=== PATIENT | female | born 1965 | race Caucasian/White ===

== ENCOUNTER → 2016-07-27 | Outpatient (CLI) | payer OTHER ==
--- NOTE | 2016-07-27 16:06 | REP ---
Focused right breast sonography: History: 6-month follow-up. Comparison sonography: 01/07/2016. Findings: The right breast was scanned from 8 o'clock to 10 o'clock. At 9 o'clock there is 1.8 x 0.7 x 1.6 cm cyst 2.5 cm from the nipple. This appears sonographically simple. At 10 o'clock there are two hypoechoic areas measuring 0.4 x 0.3 x 0.3 cm and 0.9 x 0.3 x 0.7 cm. These appear to be normal breast parenchyma within a echodense fibroglandular background of breast parenchyma. Also at 10 o'clock is a 0.4 x 0.5 x 0.3 cm hypoechoic area 2.6 cm from the nipple which is felt to be unchanged from the comparison study. Impression: Stable BIRADS category 3 probably benign right breast imaging. Bilateral mammography and repeat right breast sonography recommended in 6 months. Signed by Uli Flores MD 07/28/2016 07:29 A
== END ==
LOC: M RAD 09:41
PROVIDERS: ATTEND Surgery
DX: N64.59 Other signs and symptoms in breast (principal)

== ENCOUNTER → 2016-08-31 | Outpatient (CLI) | payer OTHER ==
[~2016-08-31] MED LIST: E-Z-GAS II EFFERVESCENT PACKET (SODIUM BICARB./CITRIC ACID/SIMETHICONE) As Ordered ONE; E-Z-HD 98% w/w 340GM SUSP BTL As Ordered ONE; E-Z-PAQUE 96% w/w SUSP 176GM BTL As Ordered ONE
--- NOTE | 2016-09-01 08:04 | REP ---
UPPER GI AIR CONTRAST: The procedure was performed under the direct supervision of Dr. Mixon. The images were reviewed with Dr. Mixon. The flower maker film shows no organomegaly or pathological masses. The intestinal gas pattern is nonspecific. Liquid barium and gas producing granules were given in the erect position as well as liquid barium in the prone oblique position in order to perform a double contrast upper GI examination. The oral and pharyngeal stages of deglutition are unremarkable. Esophageal transport is prompt and efficient and there is no esophagitis, stricture, mucosal ring, or hiatal hernia. The GE junction is patulous and there is gastroesophageal reflux demonstrated to above the level of the sanaz. The stomach avilez are normally outlined. The rugal folds are smooth and regular. There is no gastritis, neoplasm, or ulcer disease. The duodenal avilez are normally outlined. The mucosal folds are smooth and regular. There is no duodenitis, pancreatitis, peptic ulcer disease or neoplasm. The visualized portion of the proximal small bowel appears normal in course and caliber. IMPRESSION: The GE junction is patulous and there is gastroesophageal reflux demonstrated to above the level of the sanaz. Otherwise unremarkable double contrast upper GI examination. 1 minute and 51 seconds of fluoroscopic time was utilized for this procedure. Reviewed by CHIDI Augustin 09/02/2016 03:24 PEdited and Signed by Garth Mixon MD 09/02/2016 04:48 P
== END ==
LOC: M RAD 08:50
PROVIDERS: ATTEND Family Medicine
DX: K21.9 Gastro-esophageal reflux disease without esophagitis (principal)

== ENCOUNTER 2016-12-15 12:00 | Outpatient (CLI) | payer OTHER ==
[~2016-12-15] VITALS: Ht 162.6 cm; Wt 61.7 kg
[~2016-12-15 12:00] MED LIST changes: +DRIS50002 PO; -E-Z-GAS II EFFERVESCENT PACKET (SODIUM BICARB./CITRIC ACID/SIMETHICONE) As Ordered ONE; -E-Z-HD 98% w/w 340GM SUSP BTL As Ordered ONE; -E-Z-PAQUE 96% w/w SUSP 176GM BTL As Ordered ONE; +IRON65TA PO; +PANT40TA2 PO; +PROP1TAB29 PO
[2016-12-15] MEDS ORDERED: NS 1,000 ML IV ONE (13:00)
[2016-12-15] MEDS ORDERED: PROPOFOL 200 MG/20 ML VIAL As Ordered ONE ×2 (14:07→14:28)
[2016-12-15] MEDS ORDERED: LIDOCAINE 2% INJ 100 MG/5 ML SDV (FOR ANES.) As Ordered ONE (14:07)
--- NOTE | 2016-12-15 14:15 | ROOR ---
Patient Name: Kiki Larry Procedure Date: 12/15/2016 2:02 PM Date of : 1965 Age: 51 Room: [facility] Gender: Female Note Status: Finalized Procedure: Upper GI endoscopy Indications: Follow-up of Ac's esophagus Providers: Jaylon KENDRICK MD Referring MD: Brunilda Sanchez MD Requesting Provider: Medicines: Monitored Anesthesia Care Complications: No immediate complications. Procedure: Pre-Anesthesia Assessment: - The heart rate, respiratory rate, oxygen saturations, blood pressure, adequacy of pulmonary ventilation, and response to care were monitored throughout the procedure. The Endoscope was introduced through the mouth, and advanced to the second part of duodenum. The upper GI endoscopy was accomplished without difficulty. The patient tolerated the procedure well. Findings: The Z-line was irregular and was found 38 to 39 cm from the incisors. This was biopsied with a cold forceps for evaluation to rule out Ac's Esophagus. The examined esophagus was normal. The entire examined stomach was normal. The examined duodenum was normal. Impression: - Z-line irregular, 38 to 39 cm from the incisors c/w short segment barretts esophagus. Biopsied. - Normal esophagus. - Normal stomach. - Normal examined duodenum. Recommendation: - Await pathology results. - Repeat upper endoscopy in 3 years for surveillance. - Use Protonix (pantoprazole) 40 mg twice a day for Barretts esophagus Jaylon Kendrick MD Jaylon KENDRICK MD 12/15/2016 2:15:43 PM This report has been signed electronically. Number of Addenda: 0 Note Initiated On: 12/15/2016 2:02 PM Estimated Blood Loss: Estimated blood loss: none.
--- NOTE | 2016-12-15 14:38 | ROOR ---
Patient Name: Kiki Larry Procedure Date: 12/15/2016 2:04 PM Date of : 1965 Age: 51 Room: OP02 Gender: Female Note Status: Finalized Procedure: Colonoscopy Indications: Screening in patient at increased risk: Colorectal cancer in mother before age 60, Screening in patient at increased risk: Colorectal cancer in brother before age 60 Providers: Jaylon BRENNAN MD Referring MD: Brunilda Sanchez MD Requesting Provider: Medicines: Monitored Anesthesia Care Complications: No immediate complications. Procedure: Pre-Anesthesia Assessment: - The heart rate, respiratory rate, oxygen saturations, blood pressure, adequacy of pulmonary ventilation, and response to care were monitored throughout the procedure. The Colonoscope was introduced through the anus and advanced to the cecum, identified by appendiceal orifice and ileocecal valve. The colonoscopy was performed without difficulty. The patient tolerated the procedure well. The quality of the bowel preparation was good. Findings: The perianal and digital rectal examinations were normal. Two sessile polyps were found in the splenic flexure. The polyps were small in size. These polyps were removed with a cold snare. Resection and retrieval were complete. The exam was otherwise without abnormality on direct and retroflexion views. Impression: - Two small (3-4 mm) polyps at the splenic flexure, removed with a cold snare. Resected and retrieved. - The colon examination was otherwise normal on direct and retroflexion views. Recommendation: - Telephone endoscopist for pathology results in 2 weeks. - Due to strong first degree family history of colon cancer, would recommend genetic testing to determine surveillance interval/repeat colonoscopy. (OR if you do not want genetic testing, then would recommend 2 year repeat colonoscopy) Jaylon Brennan MD Jaylon BRENNAN MD 12/15/2016 2:37:54 PM This report has been signed electronically. Number of Addenda: 0 Note Initiated On: 12/15/2016 2:04 PM Estimated Blood Loss: Estimated blood loss: none.
[2016-12-15 15:00] VITALS: BP 109/68
== END 2016-12-15 15:12 | disposition home or self-care (01) ==
LOC: M OPP 12:00
PROVIDERS: ATTEND Internal Medicine Gastroenterology
DX: Z12.11 Encounter for screening for malignant neoplasm of colon (principal); D12.3 Benign neoplasm of transverse colon; Z80.0 Family history of malignant neoplasm of digestive organs; R12 Heartburn; K22.70 Barrett's esophagus without dysplasia; K22.8 Other specified diseases of esophagus; I10 Essential (primary) hypertension; R25.1 Tremor, unspecified; Z78.0 Asymptomatic menopausal state; D64.9 Anemia, unspecified

== ENCOUNTER → 2017-01-25 | Outpatient (REF) | payer OTHER ==
[2017-01-25 13:28] LABS: ANION GAP 6 MEQ/L (8-16); BLOOD UREA NITROGEN 11 MG/DL (7-18); CALCIUM LEVEL 9.3 MG/DL (8.5-10.1); CARBON DIOXIDE LEVEL 30 MEQ/L (21-32); CHLORIDE LEVEL 106 MEQ/L (98-107); GLOMERULAR FILTRATION RATE > 60.0 (>51); GLUCOSE, FASTING 94 MG/DL (70-105); MAGNESIUM LEVEL 2.1 MG/DL (1.8-2.4); POTASSIUM SERUM 4.7 MEQ/L (3.5-5.1); SODIUM LEVEL 142 MEQ/L (136-145)
== END ==
LOC: M LABDRAW1 10:23
PROVIDERS: ATTEND Internal Medicine Cardiovascular Disease
DX: I49.3 Ventricular premature depolarization (principal)

== ENCOUNTER → 2017-02-04 | Outpatient (CLI) | payer OTHER ==
--- NOTE | 2017-02-04 14:38 | REP ---
DIGITAL SCREENING BILATERAL MAMMOGRAPHY WITH CAD: HISTORY: Comparison is made with prior mammography from December 26, 2014, January 02, 2016, January 09, 2016. Prior sonography is from January 07, 2016 and July 27, 2016. On July 27, 2016 the patient was BIRADS category 3. Bilateral mammography and repeat right breast sonography were recommended. MAMMOGRAPHIC FINDINGS: The previously noted bilateral breast cysts are again seen. These sharply circumscribed lesions one in each central breast measure 2.1 cm in greatest diameter for the right breast lesion and 1.9 cm for the left. No change from most recent prior mammography. These were previously noted to be cysts. Moderate fibroglandular elements are seen throughout the upper outer quadrants. No other dominant density is seen. No microcalcification or architectural distortion is seen. IMPRESSION: BIRADS category 0 incomplete breast imaging. Stable mammographic findings. Recommend the patient return for the previously recommended 6-month follow-up right breast sonography. BI-RADS/ACR category 0 mammogram, incomplete. Additional imaging and/or prior images are needed before a final assessment can be assigned. This mammogram was interpreted with the aid of an FDA-approved computer-aided detection system. The patient states she/he had a clinical breast exam in July 2016. The patient letter being requested is M0. Signed by Uli lFores MD 02/04/2017 05:12 P
== END ==
LOC: M RAD 13:39
PROVIDERS: ATTEND Family Medicine
DX: R92.2 Inconclusive mammogram (principal); N60.01 Solitary cyst of right breast; N60.02 Solitary cyst of left breast

== ENCOUNTER → 2017-09-14 | Outpatient (CLI) | payer OTHER | LOC: M RAD 09:22 | DX: R92.2 Inconclusive mammogram (principal); Z12.31 Encounter for screening mammogram for malignant neoplasm of breast ==

== ENCOUNTER → 2017-09-23 | Outpatient (CLI) | payer OTHER | LOC: M RAD 10:08 | DX: N60.01 Solitary cyst of right breast (principal) | CPT/HCPCS: 76642 ==

== ENCOUNTER → 2017-11-04 | Outpatient (REF) | payer OTHER ==
[2017-11-12 13:33] LABS: HPV HYBRID CAPTURE II Negative (Negative)
== END ==
LOC: M LAB REF 09:49
DX: Z01.419 Encounter for gynecological examination (general) (routine) without abnormal findings (principal); Z11.51 Encounter for screening for human papillomavirus (HPV)

== ENCOUNTER → 2017-11-29 | Outpatient (REF) | payer OTHER ==
[2017-11-29 12:14] LABS: BASO % 0.1 % (0.0-1.0); EOS # 0.1 10^3/uL (0.0-0.50); EOS % 0.9 % (0.0-3.0); HEMATOCRIT 41.7 % (36.0-47.0); HEMOGLOBIN 14.7 g/dl (12.0-15.5); IMMATURE GRANULOCYTE % 0.3 % (0-3.0); LYMPH # 2.1 10^3/uL (1.5-4.5); LYMPH % 26.3 % (24.0-44.0); MEAN CORPUSCULAR HEMOGLOBIN 30.6 pg (27.0-33.0); MEAN CORPUSCULAR HGB CONC 35.3 g/dl (32.0-36.5); MEAN CORPUSCULAR VOLUME 86.7 fl (80.0-96.0); MONO # 0.5 10^3/uL (0.0-0.8); MONO % 6.3 % (0.0-5.0); NEUTROPHILS # 5.2 10^3/uL (1.8-7.7); NEUTROPHILS % 66.1 % (36.0-66.0); PLATELET COUNT, AUTOMATED 271 10^3/uL (150-450); RED BLOOD COUNT 4.81 10^6/uL (4.00-5.40); RED CELL DISTRIBUTION WIDTH 12.6 % (11.5-14.5); WHITE BLOOD COUNT 7.9 10^3/uL (4.0-10.0)
[2017-11-29 12:30] LABS: ALBUMIN 3.9 GM/DL (3.2-5.2); ALBUMIN/GLOBULIN RATIO 1.26 (1.00-1.93); ALKALINE PHOSPHATASE 87 U/L (45-117); ALT/SGPT 23 U/L (12-78); ANION GAP 7 MEQ/L (8-16); AST/SGOT 13 U/L (7-37); BILIRUBIN,TOTAL 0.4 MG/DL (0.2-1.0); BLOOD UREA NITROGEN 15 MG/DL (7-18); CALCIUM LEVEL 9.2 MG/DL (8.5-10.1); CARBON DIOXIDE LEVEL 30 MEQ/L (21-32); CHLORIDE LEVEL 107 MEQ/L (98-107); CHOLESTEROL LEVEL 182 MG/DL (<200); CREATININE FOR GFR 0.96 MG/DL (0.55-1.30); GLOMERULAR FILTRATION RATE > 60.0 (>51); GLUCOSE, FASTING 90 MG/DL (70-100); HDL CHOLESTEROL 54 MG/DL (>40); LDL CHOLESTEROL 100.4 MG/DL (<100); NON-HDL-C 128 MG/DL; POTASSIUM SERUM 4.7 MEQ/L (3.5-5.1); SODIUM LEVEL 144 MEQ/L (136-145); TRIGLYCERIDES LEVEL 138 MG/DL (<150)
== END ==
LOC: M LABDRAW1 11:39
DX: Z00.00 Encounter for general adult medical examination without abnormal findings (principal)

== ENCOUNTER → 2018-02-14 | Outpatient (CLI) | payer OTHER | LOC: M RAD 09:39 | DX: Z12.31 Encounter for screening mammogram for malignant neoplasm of breast (principal); N60.11 Diffuse cystic mastopathy of right breast | CPT/HCPCS: 77066 ==

== ENCOUNTER → 2019-02-15 | Outpatient (CLI) | payer OTHER ==
[~2019-02-15] MED LIST changes: -DRIS50002 PO; +DRIS50003 PO; +IRON65TA2 PO; -PANT40TA2 PO; +PANT40TA3 PO; -PROP1TAB29 PO; +PROP20TA72 PO
--- NOTE | 2019-02-15 09:37 | REPMRS ---
Patient History The patient states she has not had a clinical breast exam in over a year. Patient is postmenopausal. Family history of colorectal cancer at age 53 in mother, colorectal cancer at age 39 in brother, colorectal cancer at age 70 in paternal grandfather, unknown cancer at age 76 in father. Took hormonal contraceptives for 5 years. The [facility] lifetime risk for breast cancer is 9.0%. Digital Mammo Screening Bilat: February 15, 2019 - Exam #: [id number] Bilateral CC and MLO view(s) were taken. Technologist: Krystina Petit, Technologist Prior study comparison: February 14, 2018, digital mammo diagnostic bilateral performed at [facility]. February 04, 2017, bilateral digital mammo screening bilat performed at [facility]. FINDINGS: The breast tissue is heterogeneously dense. This may lower the sensitivity of mammography. There has been no change in the appearance of the mammogram from the prior studies. There is a moderate amount of residual fibroglandular tissue which is fairly symmetric. There is no interval development of dominant mass, areas of architectural distortion, or clustered microcalcification typical of malignancy. Assessment: BI-RADS/ACR category 1 mammogram. Negative Mammogram. Recommendation Routine screening mammogram in 1 year (for women over age 40). This mammogram was interpreted with the aid of an FDA-approved computer-aided dectection system. Electronically Signed By: Garth Mixon MD 02/15/19 [id number]
== END ==
LOC: M RAD 08:11
PROVIDERS: ATTEND Family Medicine
DX: Z12.31 Encounter for screening mammogram for malignant neoplasm of breast (principal); Z80.0 Family history of malignant neoplasm of digestive organs

== ENCOUNTER 2019-03-13 10:43 | Day surgery (SDC) | payer OTHER ==
[~2019-03-13] VITALS: Ht 162.6 cm; Wt 65.7 kg
[~2019-03-13 10:43] MED LIST changes: +NS 1,000 ML IV ONE
--- NOTE | 2019-03-13 13:22 | ROOR ---
Patient Name: Kiki Larry Procedure Date: 03/13/2019 12:57 PM Date of : 1965 Age: 53 Room: [facility] Gender: Female Note Status: Finalized Procedure: Upper GI endoscopy Indications: Surveillance for malignancy due to personal history of Ac's esophagus, Esophageal reflux Providers: Jaylon KENDRICK MD Referring MD: Brunilda Sanchez MD Requesting Provider: Medicines: Monitored Anesthesia Care Complications: No immediate complications. Procedure: Pre-Anesthesia Assessment: - The heart rate, respiratory rate, oxygen saturations, blood pressure, adequacy of pulmonary ventilation, and response to care were monitored throughout the procedure. The Endoscope was introduced through the mouth, and advanced to the second part of duodenum. The upper GI endoscopy was accomplished without difficulty. The patient tolerated the procedure well. Findings: There were esophageal mucosal changes consistent with short-segment Ac's esophagus present in the distal esophagus. The maximum longitudinal extent of these mucosal changes was 1 cm in length. Mucosa was biopsied with a cold forceps for histology from 38 to 39 cm from the incisors. One specimen bottle was sent to pathology. Very small (insignificant) Hiatal Hernia. The entire examined stomach was normal. The examined duodenum was normal. Impression: - Esophageal mucosal changes consistent with very short-segment (1 cm) Ac's esophagus. Biopsied. - Very small (insignificant) Hiatal Hernia. - Normal stomach. - Normal examined duodenum. Recommendation: - Continue present medications. - Repeat upper endoscopy in 3 years for surveillance. Jaylon Kendrick MD Jaylon KENDRICK MD 03/13/2019 1:22:22 PM Electronically signed by Jaylon KENDRICK MD Number of Addenda: 0 Note Initiated On: 03/13/2019 12:57 PM Estimated Blood Loss: Estimated blood loss: none.
[2019-03-13] MEDS ORDERED: LIDOCAINE 2% INJ 100 MG/5 ML SDV (FOR ANES.) As Ordered ONE (13:31)
[2019-03-13] MEDS ORDERED: PROPOFOL 200 MG/20 ML VIAL As Ordered ONE (13:31)
--- NOTE | 2019-03-13 13:39 | ROOR ---
Patient Name: Kiki Larry Procedure Date: 03/13/2019 12:58 PM Date of : 1965 Age: 53 Room: [id number] Gender: Female Note Status: Finalized Procedure: Colonoscopy Indications: High risk colon cancer surveillance: Personal history of colonic polyps, Family history of colon cancer in multiple first-degree relatives Providers: Jaylon BRENNAN MD Referring MD: Brunilda Sanchez MD Requesting Provider: Medicines: Monitored Anesthesia Care Complications: No immediate complications. Procedure: Pre-Anesthesia Assessment: - The heart rate, respiratory rate, oxygen saturations, blood pressure, adequacy of pulmonary ventilation, and response to care were monitored throughout the procedure. The Colonoscope was introduced through the anus and advanced to the terminal ileum, with identification of the appendiceal orifice and IC valve. The colonoscopy was performed without difficulty. The patient tolerated the procedure well. The quality of the bowel preparation was good. Findings: The perianal and digital rectal examinations were normal. The colon (entire examined portion) appeared normal. Small Internal Hemorrhoids. Impression: - The entire colon is normal. - Small Internal Hemorrhoids. - No specimens collected. Recommendation: - Repeat colonoscopy in 5 years for screening purposes. Jaylon Brennan MD Jaylon BRENNAN MD 03/13/2019 1:39:13 PM Electronically signed by Jaylon BRENNAN MD Number of Addenda: 0 Note Initiated On: 03/13/2019 12:58 PM Estimated Blood Loss: Estimated blood loss: none.
[2019-03-13 14:15] VITALS: BP 117/73
== END 2019-03-13 14:28 | disposition home or self-care (01) ==
LOC: M OPP 10:43
PROVIDERS: ATTEND Internal Medicine Gastroenterology
DX: Z12.11 Encounter for screening for malignant neoplasm of colon (principal); Z86.010 Personal history of colon polyps; Z80.0 Family history of malignant neoplasm of digestive organs; K64.8 Other hemorrhoids; K22.70 Barrett's esophagus without dysplasia; K21.9 Gastro-esophageal reflux disease without esophagitis; K44.9 Diaphragmatic hernia without obstruction or gangrene; Z79.899 Other long term (current) drug therapy; Z87.42 Personal history of other diseases of the female genital tract

== ENCOUNTER → 2020-02-19 | Outpatient (CLI) | payer OTHER ==
[~2020-02-19] MED LIST changes: -NS 1,000 ML IV ONE; +PANT40TA29 PO; -PANT40TA3 PO
--- NOTE | 2020-02-19 15:45 | REPMRS ---
Patient History The patient states she has not had a clinical breast exam in over a year. Family history of colorectal cancer at age 53 in mother, colorectal cancer at age 39 in brother, colorectal cancer at age 70 in paternal grandfather, unknown cancer at age 76 in father. Took hormonal contraceptives for 5 years. 3D TOMOSYNTHESIS WAS PERFORMED. The [facility] lifetime risk for breast cancer is 8.8%. Volpara breast density b. Digital Woman Screen Mammo: February 19, 2020 - Exam #: [id number] Bilateral CC and MLO view(s) were taken. Technologist: Sonia Kaur, RT Prior study comparison: February 15, 2019, bilateral digital mammo screening bilat, performed at [facility]. February 14, 2018, digital mammo diagnostic bilateral, performed at [facility]. FINDINGS: The breast tissue is heterogeneously dense. This may lower the sensitivity of mammography. There has been no change in the appearance of the mammogram from the prior studies. There is a moderate amount of residual fibroglandular tissue which is fairly symmetric. There is no interval development of dominant mass, areas of architectural distortion, or clustered microcalcification typical of malignancy. Assessment: BI-RADS/ACR category 1 mammogram. Negative Mammogram. Recommendation Routine screening mammogram in 1 year (for women over age 40). This mammogram was interpreted with the aid of an FDA-approved computer-aided dectection system. Electronically Signed By: Garth Mixon MD 02/19/20 [id number]
== END ==
LOC: M WHC 13:50
PROVIDERS: ATTEND Family Medicine
DX: Z12.31 Encounter for screening mammogram for malignant neoplasm of breast (principal)

== ENCOUNTER → 2020-05-28 | Outpatient (REF) | payer OTHER | LOC: M LAB REF 17:15 | PROVIDERS: ATTEND Family Medicine | DX: N39.0 Urinary tract infection, site not specified (principal) ==

== ENCOUNTER → 2021-01-28 | Outpatient (REF) | payer OTHER | LOC: M LAB REF 17:08 | PROVIDERS: ATTEND Family Medicine | DX: N39.0 Urinary tract infection, site not specified (principal) ==

== ENCOUNTER → 2021-03-28 | Outpatient (CLI) | payer OTHER ==
--- NOTE | 2021-03-28 11:32 | REPMRS ---
Patient History The patient states she has not had a clinical breast exam in over a year. Patient is postmenopausal. Family history of colorectal cancer at age 53 in mother, colorectal cancer at age 39 in brother, colorectal cancer at age 70 in paternal grandfather, unknown cancer at age 76 in father. Took hormonal contraceptives for 5 years. Tomosynthesis is performed. Volpara breast density is b. [facility] lifetime risk of breast cancer 8.4%. Patient states no breast complaints today. Patient has signed MRS History Sheet. Mor and Mor vaccine 11/17/20. Digital Woman Screen Mammo: March 28, 2021 - Exam #: [id number] Bilateral CC and MLO view(s) were taken. Technologist: Luba Castro, Technologist Prior study comparison: February 19, 2020, bilateral digital woman screen mammo performed at [facility]. February 15, 2019, bilateral digital mammo screening bilat, performed at [facility]. FINDINGS: The breast tissue is heterogeneously dense. This may lower the sensitivity of mammography. There has been no change in the appearance of the mammogram from the prior studies. There is a moderate amount of residual fibroglandular tissue which is fairly symmetric. There is no interval development of dominant mass, areas of architectural distortion, or clustered microcalcification typical of malignancy. Assessment: BI-RADS/ACR category 1 mammogram. Negative Mammogram. Recommendation Routine screening mammogram in 1 year (for women over age 40). This mammogram was interpreted with the aid of an FDA-approved computer-aided dectection system. Electronically Signed By: Garth Mixon MD 03/28/21 [id number]
== END ==
LOC: M WHC 09:40
PROVIDERS: ATTEND Family Medicine
DX: Z12.31 Encounter for screening mammogram for malignant neoplasm of breast (principal); Z80.0 Family history of malignant neoplasm of digestive organs

== ENCOUNTER → 2022-04-07 | Outpatient (CLI) | payer OTHER | LOC: M WHC 08:23 | PROVIDERS: ATTEND Nurse Practitioner Family | DX: R92.2 Inconclusive mammogram (principal) ==

== ENCOUNTER → 2022-05-14 | Outpatient (CLI) | payer OTHER | LOC: M WHC 08:09 | PROVIDERS: ATTEND Nurse Practitioner Family | DX: R92.2 Inconclusive mammogram (principal) | CPT/HCPCS: 77065; G0279 ==

== ENCOUNTER → 2022-06-01 | Outpatient (REF) | payer OTHER ==
[~2022-06-01] MED LIST changes: +D 50CAP2 PO; +FAMO40TA3 PO; +PROP10TA56 PO
== END ==
LOC: M LAB REF 17:12
PROVIDERS: ATTEND Nurse Practitioner Family
DX: M54.50 Low back pain, unspecified (principal)

== ENCOUNTER 2022-08-10 11:07 | Day surgery (SDC) | payer OTHER ==
[~2022-08-10] VITALS: Ht 162.6 cm; Wt 67.8 kg
[~2022-08-10 11:07] MED LIST changes: +ACET-683 PO; +CLAR1CHW2 PO; +IBUP200C25 PO; +LIDOCAINE 2% 100MG/5ML SDV (FOR ANES.) As Ordered ONE; +NS 1,000 ML IV ONE; +fentaNYL 100 MCG/2 ML INJECTION As Ordered ONE; +propofoL 200 MG/20 ML VIAL As Ordered ONE
[2022-08-10 12:50] VITALS: BP 113/80
== END 2022-08-10 13:05 | disposition home or self-care (01) ==
LOC: M OPP 11:07
PROVIDERS: ATTEND Internal Medicine Gastroenterology
DX: Z85.038 Personal history of other malignant neoplasm of large intestine (principal); D12.0 Benign neoplasm of cecum; D12.4 Benign neoplasm of descending colon; Z15.09 Genetic susceptibility to other malignant neoplasm; K22.70 Barrett's esophagus without dysplasia; K22.89 Other specified disease of esophagus
CPT/HCPCS: 45385; 88305; J3010

== ENCOUNTER → 2023-02-15 | Outpatient (REF) | payer OTHER ==
[~2023-02-15] MED LIST changes: -LIDOCAINE 2% 100MG/5ML SDV (FOR ANES.) As Ordered ONE; -NS 1,000 ML IV ONE; -fentaNYL 100 MCG/2 ML INJECTION As Ordered ONE; -propofoL 200 MG/20 ML VIAL As Ordered ONE
== END ==
LOC: M LAB REF 18:08
PROVIDERS: ATTEND Registered Nurse
DX: Z12.4 Encounter for screening for malignant neoplasm of cervix (principal); N95.2 Postmenopausal atrophic vaginitis
CPT/HCPCS: 87624; G0123

== ENCOUNTER → 2023-02-26 | Outpatient (CLI) | payer OTHER | LOC: M WHC 08:10 | PROVIDERS: ATTEND Registered Nurse | DX: R10.812 Left upper quadrant abdominal tenderness (principal) ==

== ENCOUNTER → 2023-05-24 | Outpatient (CLI) | payer OTHER | LOC: M WHC 09:43 | PROVIDERS: ATTEND Nurse Practitioner Family | DX: Z12.31 Encounter for screening mammogram for malignant neoplasm of breast (principal) ==

== ENCOUNTER → 2024-02-04 | Outpatient (CLI) | payer OTHER | LOC: M RAD 13:38 | PROVIDERS: ATTEND Registered Nurse | DX: R07.89 Other chest pain (principal) ==

== ENCOUNTER → 2024-05-26 | Outpatient (CLI) | payer OTHER ==
[~2024-05-26] MED LIST changes: -CLAR1CHW2 PO; +LORA5TAB15 PO
== END ==
LOC: M WHC 08:09
PROVIDERS: ATTEND Nurse Practitioner Family
DX: Z12.31 Encounter for screening mammogram for malignant neoplasm of breast (principal)